=== PATIENT | male | born 1985 | race Caucasian/White ===

== ENCOUNTER 2020-02-28 10:25 | Emergency (ER) | payer MEDICAID, OTHER ==
[2020-02-28] MEDS ORDERED: Sodium Chloride 0.9% 10 ML Syringe FLUSH PRN (11:37)
[2020-02-28] MEDS ORDERED: Ondansetron 4 MG/2 ML SDV IVPUSH ONE (11:59)
[2020-02-28] MEDS ORDERED: Alum Hydrox/Mag Hydrox/Simeth 30 ML, Lidocaine 2% 15 ML PO ONE ×2 (11:59)
[2020-02-28] MEDS ORDERED: Sodium Chloride 0.9% 1,000 ML IV STA (11:59)
--- NOTE | 2020-02-28 12:36 | EDM.PDOC ---
ED HPI GENERAL MEDICAL PROBLEM - General Chief Complaint: Abdominal Pain Stated Complaint: [facility] Time Seen by Provider: 02/28/20 11:36 Source of Information: Reports: Patient History Limitations: Reports: No Limitations - History of Present Illness INITIAL COMMENTS - FREE TEXT/NARRATIVE: Patient is a 34-year-old male presenting to the emergency department with co mplaints of a 3-day history of nausea, vomiting, diarrhea, and intermittent abdominal cramping. He states that he feels like he got food poisoning, however he is unsure of the exact source of the food poisoning. Patient is homeless and states that on Wednesday someone gave him a bag of leftovers which he ate. He has had numerous bouts of diarrhea as well as occasional vomiting. He states the vomiting is less than the diarrhea. He feels that the symptoms have improved since they began and that he is "on the downhill slope ". He denies any blood in his vomit or stools, however states that esophagus is burning. He also states that he is a heavy drinker but he has not been able to drink as much as normal because he is not been feeling well. Last drink was around 1:00 this morning. Denies any history of alcoholic DTs or seizures. Patient is currently hitchhiking in route to [place] to stay at the [facility]. Abdominal Pain Score (Numeric/FACES): 4 - Related Data Allergies Allergy/AdvReac Type Severity Reaction Status Date / Time morphine Allergy Severe Vomiting Verified 02/28/20 10:38 Home Meds: Home Meds Ondansetron [Zofran ODT] 4 mg PO Q6H PRN #10 tab.dis 02/28/20 [Rx] Past Medical History - Past Health History Medical/Surgical History: Denies Medical/Surgical History Musculoskeletal History: Reports: Fracture Neurological History: Reports: Seizure Psychiatric History: Reports: Anxiety, Depression - Infectious Disease History Infectious Disease History: Reports: Chicken Pox Other Infectious Disease History: chicken pox as child Social & Family History - Tobacco Use Smoking Status *Q: Current Every Day Smoker Years of Tobacco use: 15 Packs/Tins Daily: 0.1 - Caffeine Use Caffeine Use: Reports: None - Recreational Drug Use Recreational Drug Use: No ED ROS GENERAL - Review of Systems Review Of Systems: See Below Constitutional: Denies: Fever, Chills, Weakness HEENT: Reports: No Symptoms Respiratory: Reports: No Symptoms. Denies: Shortness of Breath, Cough Cardiovascular: Reports: No Symptoms Endocrine: Reports: No Symptoms GI/Abdominal: Reports: Abdominal Pain, Diarrhea, Nausea, Vomiting. Denies: Black Stool, Bloody Stool, Hematemesis : Reports: No Symptoms Musculoskeletal: Reports: No Symptoms Skin: Reports: No Symptoms Neurological: Reports: No Symptoms Psychiatric: Reports: No Symptoms Hematologic/Lymphatic: Reports: No Symptoms ED EXAM, GI/ABD - Physical Exam Exam: See Below General Appearance: Alert, WD/WN, No Apparent Distress Respiratory/Chest: No Respiratory Distress, Lungs Clear, Normal Breath Sounds, No Accessory Muscle Use, Chest Non-Tender Cardiovascular: Normal Peripheral Pulses, Regular Rate, Rhythm, No Edema, No Gallop, No JVD, No Murmur, No Rub GI/Abdominal Exam: Normal Bowel Sounds, Soft, No Organomegaly, No Distention, No Abnormal Bruit, No Mass, Pelvis Stable, Tender (Mild generalized abdominal tenderness throughout) Neurological: Alert, Oriented, CN II-XII Intact, Normal Cognition, Normal Gait, Normal Reflexes, No Motor/Sensory Deficits Psychiatric: Normal Affect, Normal Mood Skin Exam: Warm, Dry, Intact, Normal Color, No Rash Course - Vital Signs Last Recorded V/S: Last Vital Signs Temp 97.9 F 02/28/20 12:14 Pulse 57 L 02/28/20 12:14 Resp 16 02/28/20 12:14 BP 115/67 02/28/20 12:14 Pulse Ox 100 02/28/20 12:14 - Orders/Labs/Meds Orders: Active Orders 24 hr Category Date Time Status Peripheral IV Care [RC] . DIRECTED Care 02/28/20 11:37 Active Sodium Chloride 0.9% [Saline Flush] Med 02/28/20 11:37 Active 10 ml FLUSH ASDIRECTED PRN Peripheral IV Insertion Adult [OM.PC] Stat Oth 02/28/20 11:37 Ordered Medication Orders Sodium Chloride (Saline Flush) 10 ml FLUSH ASDIRECTED PRN PRN Reason: Keep Vein Open Last Admin: 02/28/20 12:00 Dose: 10 ml Documented by: SYLVIA Labs: Laboratory Tests 02/28/20 02/28/20 02/28/20 Range/Units 10:41 11:54 11:54 WBC 3.98 L (4.23-9.07) K/mm3 RBC 4.69 (4.63-6.08) M/mm3 Hgb 15.8 (13.7-17.5) gm/dl Hct 46.0 (40.1-51.0) % MCV 98.1 H (79.0-92.2) fl MCH 33.7 H (25.7-32.2) pg MCHC 34.3 (32.2-35.5) g/dl RDW Std Deviation 46.0 H (35.1-43.9) fL Plt Count 234 (163-337) K/mm3 MPV 9.3 L (9.4-12.3) fl Neut % (Auto) 74.9 H (34.0-67.9) % Lymph % (Auto) 14.1 L (21.8-53.1) % [place] % (Auto) 9.5 (5.3-12.2) % Eos % (Auto) 1.0 (0.8-7.0) Baso % (Auto) 0.5 (0.1-1.2) % Neut # (Auto) 2.98 (1.78-5.38) K/mm3 Lymph # (Auto) 0.56 L (1.32-3.57) K/mm3 [place] # (Auto) 0.38 (0.30-0.82) K/mm3 Eos # (Auto) 0.04 (0.04-0.54) K/mm3 Baso # (Auto) 0.02 (0.01-0.08) K/mm3 Sodium 137 (136-145) mEq/L Potassium 3.7 (3.5-5.1) mEq/L Chloride 99 (98-107) mEq/L Carbon Dioxide 28 (21-32) mEq/L Anion Gap 13.7 (5-15) BUN 3 L (7-18) mg/dL Creatinine 1.0 (0.7-1.3) mg/dL Est Cr Clr Drug Dosing 108.86 mL/min Estimated GFR (MDRD) > 60 (>60) mL/min BUN/Creatinine Ratio 3.0 L (14-18) Glucose 101 (74-106) mg/dL Calcium 9.1 (8.5-10.1) mg/dL Total Bilirubin 1.9 H (0.2-1.0) mg/dL AST 351 H (15-37) U/L ALT 227 H (16-63) U/L Alkaline Phosphatase 187 H (46-116) U/L C-Reactive Protein <0.2 (<1.0) mg/dL Total Protein 8.0 (6.4-8.2) g/dl Albumin 3.8 (3.4-5.0) g/dl Globulin 4.2 gm/dL Albumin/Globulin Ratio 0.9 L (1-2) Lipase 82 (73-393) U/L Urine Color Yellow (Yellow) Urine Appearance Clear (Clear) Urine pH 8.5 H (5.0-8.0) Ur Specific [place] 1.020 (1.005-1.030) Urine Protein Trace H (Negative) Urine Glucose (UA) Negative (Negative) Urine Ketones Negative (Negative) Urine Occult Blood Negative (Negative) Urine Nitrite Negative (Negative) Urine Bilirubin Negative (Negative) Urine Urobilinogen 1.0 (0.2-1.0) Ur Leukocyte Esterase Negative (Negative) Urine RBC Not seen (0-5) /hpf Urine WBC Not seen (0-5) /hpf Ur Epithelial Cells Not seen (0-5) /hpf Amorphous Sediment Few H (NOT SEEN) /hpf Urine Bacteria Few (FEW) /hpf Urine Mucus Not seen (FEW) /hpf Meds: Medications Generic Name Dose Route Start Last Admin Trade Name Julian PRN Reason Stop Dose Admin Sodium Chloride 10 ml 02/28/20 11:37 02/28/20 12:00 Saline Flush FLUSH 10 ml ASDIRECTED PRN Administration Keep Vein Open Discontinued Medications Generic Name Dose Route Start Last Admin Trade Name Julian PRN Reason Stop Dose Admin Al Hydroxide/Mg Hydroxide 30 0 ml 02/28/20 11:59 02/28/20 12:31 ml/ Lidocaine HCl 15 ml PO 02/28/20 12:00 45 ml ONETIME ONE Administration Dicyclomine HCl 20 mg 02/28/20 13:25 Bentyl PO 02/28/20 13:26 ONETIME ONE Sodium Chloride 1,000 mls @ 999 mls/hr 02/28/20 11:59 02/28/20 12:09 Normal Saline IV 02/28/20 12:59 999 mls/hr NOW STA Administration Ondansetron HCl 4 mg 02/28/20 11:59 02/28/20 12:09 Zofran IVPUSH 02/28/20 12:00 4 mg ONETIME ONE Administration - Re-Assessments/Exams Free Text/Narrative Re-Assessment/Exam: 02/28/20 13:29 Hematology was significant for WBC minimally low at 3.98, total bili 1.9, AST 351, ALT 227, alk phos 187. Lipase was normal. Patient is not overly dehydrated. Liver enzymes are elevated, however this is to be somewhat expected considering he states that he is a heavy drinker. Discussed with him that would recommend reducing his drinking as it is affecting his liver. He is feeling somewhat better after IV fluids, Zofran, and GI cocktail. He is still having some intermittent abdominal cramping. We will give him a dose of dicyclomine here. Prescription for this was offered but he declined. He did accept a prescription for Zofran, therefore I will send that to clinic pharmacy. Recommend clear liquid diet for the next 24 to 48 hours. Discharge instructions as documented. Departure - Departure Time of Disposition: 13:29 Disposition: Home, Self-Care 01 Condition: Good Clinical Impression: Gastroenteritis - Discharge Information *PRESCRIPTION DRUG MONITORING PROGRAM REVIEWED*: No *COPY OF PRESCRIPTION DRUG MONITORING REPORT IN PATIENT LYDIA: No Prescriptions: Ondansetron [Zofran ODT] 4 mg PO Q6H PRN #10 tab.dis PRN Reason: Nausea/Vomiting Instructions: Nausea and Vomiting, Adult, [id number] Referrals: PCP,None [Primary Care Provider] - Forms: ED Department Discharge Additional Instructions: You were seen in the emergency department today for 3-day history of nausea, vomiting, diarrhea, and abdominal cramping. Your work-up included blood work and urinalysis. Your work-up was overall normal with the exception of your bilirubin and liver enzymes being elevated, likely secondary to your chronic alcohol abuse. Recommend that you reduce or stop drinking alcohol as it is affecting your liver. While in the ER you received a liter of IV fluids, Zofran for nausea, a GI cocktail, and a dose of dicyclomine for abdominal cramping. A prescription for Zofran has been sent to clinic pharmacy. Use this every 6 hours as needed for nausea and vomiting. Recommend clear liquid diet for the next 24 to 48 hours and then increase slowly as tolerated. Return to the ER for any new or worsening symptoms of concern. Sepsis Event Note (ED) - Evaluation Sepsis Screening Result: No Definite Risk - Focused Exam Vital Signs: Vital Signs Temp Pulse Resp BP Pulse Ox 02/28/20 12:14 97.9 F 57 L 16 115/67 100 02/28/20 10:29 98.3 F 50 L 18 124/81 98 - My Orders Last 24 Hours: My Active Orders 02/28/20 11:37 Peripheral IV Care [RC] . DIRECTED Sodium Chloride 0.9% [Saline Flush] 10 ml FLUSH ASDIRECTED PRN Peripheral IV Insertion Adult [OM.PC] Stat - Assessment/Plan Last 24 Hours: My Active Orders 02/28/20 11:37 Peripheral IV Care [RC] . DIRECTED Sodium Chloride 0.9% [Saline Flush] 10 ml FLUSH ASDIRECTED PRN Peripheral IV Insertion Adult [OM.PC] Stat
[2020-02-28] MEDS ORDERED: Dicyclomine 10 MG Cap PO ONE (13:25)
== END 2020-02-28 13:54 | disposition home or self-care (01) ==
LOC: JD.ED 10:25
DX: K52.9 Noninfective gastroenteritis and colitis, unspecified (principal); R74.8 Abnormal levels of other serum enzymes; F17.210 Nicotine dependence, cigarettes, uncomplicated; Z88.5 Allergy status to narcotic agent; Z59.0 Homelessness
CPT/HCPCS: 36415; 80053; 81001; 83690; 85025; 86140; 96361; 96374; 99284; A9270; J2405; J7030; 99283